=== PATIENT | male | born 1950 | race Caucasian/White ===

== ENCOUNTER 2024-10-08 13:30 | Emergency (ER) | payer OTHER ==
[2024-10-08 14:26] LABS: #Basophils 0.09 10x3/uL (0.0-0.2); #Eosinophils 0.87 10x3/uL (0.0-0.5); #Monocytes 0.76 10x3/uL (0.0-1.1); %Basophils 1.1 % (0.0-2.0); %Eosinophils 10.9 % (0.0-6.0); %Lymphocytes 26.4 % (18.0-47.0); %Monocytes 9.6 % (0.0-10.0); %Neutrophils 51.6 % (40.0-75.0); Hematocrit 30.7 % (38.8-50.0); Mean Corpuscular HGB CONC 32.6 g/dL (32.0-36.0); Mean Corpuscular Hemoglobin 31.9 pg (27.0-33.0); Mean Corpuscular Volume 98.1 fL (81.2-95.1); Mean Platelet Volume 8.7 fL (7.4-10.4); Platelet Count 280 10x3/uL (150-450); RBC Distribution Width 16.5 % (11.5-14.5); Red Blood Cell (RBC) Count 3.13 10x6/uL (4.32-5.72)
[2024-10-08 14:32] LABS: D-Dimer Test 1.65 mcg/mL (0.19-0.50); INR-International Normal Ratio 1.1; PTT 41.8 sec (22.0-33.0); Prothrombin Time 11.9 sec (9.5-12.1)
[2024-10-08 14:34] LABS: ALT (SGPT) 22 U/L (8-55); AST (SGOT) 35 U/L (5-34); Albumin 3.6 g/dL (3.4-4.8); Alkaline Phosphatase 44 U/L (40-110); Anion Gap 14 mmol/L (10-20); BUN (Urea Nitrogen) 11 mg/dL (8.4-25.7); Bilirubin, Total 0.3 mg/dL (0.2-1.2); Calc. Creatinine Clearance 0 mL/min (70-130); Calcium 8.9 mg/dL (7.8-10.44); Carbon Dioxide 21 mmol/L (23-31); Chloride 103 mmol/L (98-107); Estimated GFR 49; Globulin 3.4 g/dL (2.4-3.5); Glucose 78 mg/dL (83-110); Potassium 4.4 mmol/L (3.5-5.1); Sodium 134 mmol/L (136-145)
== END 2024-10-08 16:12 | disposition home or self-care (01) ==
LOC: CSHERS 13:30
DX: M25.562 Pain in left knee (principal); M79.89 Other specified soft tissue disorders; R22.42 Localized swelling, mass and lump, left lower limb; I10 Essential (primary) hypertension; Z55.0 Illiteracy and low-level literacy; Z87.891 Personal history of nicotine dependence
CPT/HCPCS: 36415; 80053; 85025; 85379; 85610; 85730